=== PATIENT | male | born 1975 | race Caucasian/White ===

== ENCOUNTER 2021-08-14 15:58 | Emergency (ER) | payer OTHER ==
[2021-08-14 20:37] LABS: BUN/CREATININE RATIO 16 (0-10)
[2021-08-14 20:49] LABS: HEMOGLOBIN 15.5 gm/dl (14.0-17.5); RED BLOOD COUNT 5.15 M/UL (4.20-5.50); WHITE BLOOD COUNT 7.6 K/UL (4.5-11.0)
[2021-08-14] MEDS ORDERED: ZOFRAN ODT 4 MG4 MG PO (21:11)
[2021-08-14] MEDS ORDERED: PROVENTIL HFA6.7 GM INH (21:11)
[2021-08-14] MEDS ORDERED: LODINE CAP 300300 MG PO (21:11)
== END 2021-08-14 21:26 | disposition admitted as inpatient to this hospital (09) ==
LOC: ER1 15:58
PROVIDERS: Physician Assistant
DX: U07.1 COVID-19 (principal); R53.1 Weakness; E11.9 Type 2 diabetes mellitus without complications; F17.290 Nicotine dependence, other tobacco product, uncomplicated
CPT/HCPCS: 0240U; 71045; 80053; 81001; 82550; 82553; 83874; 84484; 85025; 93005; 99285